=== PATIENT | female | born 1980 | race Asian ===

== ENCOUNTER 2017-03-23 17:51 | Outpatient (CLI) | payer MEDICAID ==
[~2017-03-23] VITALS: Ht 157.5 cm; Wt 81.8 kg
[2017-03-23] MEDS ORDERED: PREN1TAB60 PO (19:38)
== END 2017-03-23 19:47 | disposition home or self-care (01) ==
LOC: LDOP 17:51
PROVIDERS: ATTEND Student in an Organized Health Care Education/Training Program
DX: O09.523 Supervision of elderly multigravida, third trimester (principal); O24.419 Gestational diabetes mellitus in pregnancy, unspecified control; O46.93 Antepartum hemorrhage, unspecified, third trimester; Z3A.33 33 weeks gestation of pregnancy
CPT/HCPCS: 59025; 81001; 82962; 87086; 99201; G0463

== ENCOUNTER 2017-04-25 16:28 | Outpatient (CLI) | payer MEDICAID ==
[~2017-04-25] VITALS: Ht 162.6 cm; Wt 82.0 kg
[~2017-04-25 16:28] MED LIST: PREN1TAB60 PO
== END 2017-04-25 18:50 | disposition home or self-care (01) ==
LOC: LDOP 16:28
PROVIDERS: ATTEND Student in an Organized Health Care Education/Training Program
DX: O09.513 Supervision of elderly primigravida, third trimester (principal); O36.8130 Decreased fetal movements, third trimester, not applicable or unspecified; O24.419 Gestational diabetes mellitus in pregnancy, unspecified control; Z3A.39 39 weeks gestation of pregnancy
CPT/HCPCS: 59025; 99211; G0463

== ENCOUNTER 2017-05-02 07:36 | Inpatient (IN) | payer MEDICAID ==
[~2017-05-02] VITALS: Ht 157.5 cm; Wt 82.7 kg
[2017-05-02 09:00] VITALS: BP 115/73
[2017-05-02] MEDS: D5%-LACTATED RINGERS 1,000 ML IV SCH ×2 (09:07→17:07)
[2017-05-02] MEDS ORDERED: OXYTOCIN 30U/ 0.9% NaCL 500ML 500 ML IV ONE (09:07)
[2017-05-02] MEDS ORDERED: ONDANSETRON 2MG/ML, 2ML IVPush PRN (09:30)
[2017-05-02] MEDS ORDERED: CALCIUM CARBONATE 500 MG TAB.CHEW PO PRN (09:30)
[2017-05-02] MEDS ORDERED: FENTANYL PF 100 MCG/2ML IV PRN (09:30)
[2017-05-02] MEDS ORDERED: LIDOCAINE 1%, 20ML ONE (09:43)
[2017-05-02] MEDS ORDERED: MISOPROSTOL 200 MCG TABLET ONE (09:43)
[2017-05-02] MEDS ORDERED: OXYTOCIN 30U/ 0.9% NaCL 500ML 500 ML ONE (09:44)
[2017-05-02] MEDS ORDERED: NEWBORN KIT ONE (09:44)
[2017-05-02 09:56] LABS: HEMATOCRIT 33.9 % (34.6-47.8); HEMOGLOBIN 10.6 g/dL (11.7-16.4); WHITE BLOOD COUNT 7.7 x10^3/uL (3.4-10)
[2017-05-02] MEDS ORDERED: MISOPROSTOL 25 MCG TABLET ONE (10:09)
[2017-05-02] MEDS ORDERED: MISOPROSTOL 25 MCG TABLET VG PRN (10:30)
[2017-05-02] MEDS ORDERED: OXYTOCIN 30U/ 0.9% NaCL 500ML 500 ML IV PRN (17:28)
[2017-05-03] MEDS: D5%-LACTATED RINGERS 1,000 ML IV SCH ×3 (01:07→17:07)
[2017-05-03] MEDS ORDERED: FENTANYL PF 100 MCG/2ML ONE ×3 (05:02→19:04)
[2017-05-03] MEDS: FENTANYL PF 100 MCG/2ML IVPush PRN ×2 (05:04→08:08)
[2017-05-03] MEDS: LACTATED RINGERS 1,000 ML IV SCH ×5 (05:04→18:58)
[2017-05-03] MEDS: LACTATED RINGERS 1,000 ML IVBOLUS PRN ×2 (18:16→19:00)
[2017-05-03] MEDS ORDERED: FENTANYL/BUPIV./NS/PF 250 ML EPIDCONT SCH (18:58)
[2017-05-03] MEDS ORDERED: EPHEDRINE 50 MG/ML, 1ML IVPush PRN (19:00)
[2017-05-03] MEDS ORDERED: NALOXONE 0.4 MG/ML, 1ML IVPush PRN (19:00)
[2017-05-03] MEDS ORDERED: BUPIVACAINE/PF 0.25% ONE (19:01)
[2017-05-03] MEDS ORDERED: FENTANYL/BUPIV./NS/PF 250 ML EPIDCONT ONE ×2 (19:01→19:04)
[2017-05-03] MEDS ORDERED: BUPIVACAINE 0.25% ONE (19:04)
[2017-05-04] MEDS: D5%-LACTATED RINGERS 1,000 ML IV SCH (01:07)
[2017-05-04] MEDS: LACTATED RINGERS 1,000 ML IV SCH ×3 (01:07→04:30)
[2017-05-04] MEDS ORDERED: HYDROcodone/APAP 5/325 TABLET PO PRN (03:00)
[2017-05-04] MEDS ORDERED: METHYLERGONOVINE 0.2 MG/ML IM PRN (03:00)
[2017-05-04] MEDS ORDERED: AMPICILLIN 2 GM in SODIUM CHLORIDE 0.9% 100 ML IV ONE (03:00)
[2017-05-04] MEDS ORDERED: GENTAMICIN 320 MG in SODIUM CHLORIDE 0.9% 100 ML IV SCH (03:00)
[2017-05-04] MEDS ORDERED: GENTAMICIN PER PHARMACY MC PRN (03:00)
[2017-05-04] MEDS ORDERED: PHARMACOKINETIC MONITORING MC PRN (03:00)
[2017-05-04] MEDS ORDERED: ONDANSETRON 2MG/ML, 2ML IV PRN (03:00)
[2017-05-04] MEDS ORDERED: CALCIUM CARBONATE 500 MG TAB.CHEW PO PRN (03:00)
[2017-05-04] MEDS ORDERED: MISOPROSTOL 200 MCG TABLET PR PRN (03:00)
[2017-05-04] MEDS ORDERED: PHARMACOKINETIC CONSULTATION MC ONE (03:00)
[2017-05-04] MEDS ORDERED: CARBOPROST TROMETHAMINE 250 MCG/ML, 1ML IM PRN (03:00)
[2017-05-04] MEDS ORDERED: OXYcodone/APAP 5/325MG TABLET ONE (03:40)
[2017-05-04] MEDS ORDERED: IBUPROFEN 600 MG TABLET ONE (03:41)
[2017-05-04] MEDS ORDERED: HYDROcodone/APAP 5/325 TABLET ONE (03:44)
[2017-05-04] MEDS: IBUPROFEN 600 MG TABLET PO PRN ×3 (03:45→18:19)
[2017-05-04] MEDS ORDERED: OXYTOCIN 30U/ 0.9% NaCL 500ML 500 ML ONE (04:28)
[2017-05-04] MEDS: OXYTOCIN 30U/ 0.9% NaCL 500ML 500 ML IV SCH ×3 (04:30→22:32)
[2017-05-04 05:45] VITALS: BP 112/72
[2017-05-04 08:20] VITALS: BP 108/70
[2017-05-04] MEDS: DOCUSATE 100 MG CAPSULE PO PRN (09:50)
[2017-05-04] MEDS: PRENATAL VIT/IRON/FA 1 EACH TABLET PO SCH (09:51)
[2017-05-04 10:29] LABS: HEMATOCRIT 31.8 % (34.6-47.8); WHITE BLOOD COUNT 18.4 x10^3/uL (3.4-10)
[2017-05-04] MEDS: HYDROcodone/APAP 5/325 TABLET PO PRN (11:36)
[2017-05-04 12:00] VITALS: BP 105/69
[2017-05-04] MEDS ORDERED: LACTATED RINGERS 1,000 ML IVBOLUS ONE (14:00)
[2017-05-04] MEDS ORDERED: DIPH,PERTUSS(ACELL),TET VAC/PF NC IM-VACC ONE ×2 (15:24→17:00)
[2017-05-04 16:00] VITALS: BP 112/68
[2017-05-04 19:45] VITALS: BP 109/68
[2017-05-05] MEDS: OXYTOCIN 30U/ 0.9% NaCL 500ML 500 ML IV SCH (08:32)
[2017-05-05] MEDS: PRENATAL VIT/IRON/FA 1 EACH TABLET PO SCH (09:00)
[2017-05-05] MEDS: IBUPROFEN 600 MG TABLET PO PRN ×2 (10:42→19:29)
[2017-05-05] MEDS: DOCUSATE 100 MG CAPSULE PO PRN ×2 (10:42→19:29)
[2017-05-05] MEDS: HYDROcodone/APAP 5/325 TABLET PO PRN (10:43)
[2017-05-05 19:15] VITALS: BP 122/83
[2017-05-06] MEDS: IBUPROFEN 600 MG TABLET PO PRN ×2 (02:13→10:00)
[2017-05-06] MEDS: PRENATAL VIT/IRON/FA 1 EACH TABLET PO SCH (10:00)
[2017-05-06] MEDS: DOCUSATE 100 MG CAPSULE PO PRN (10:00)
[2017-05-06 10:20] VITALS: BP 129/82
[2017-05-06] MEDS ORDERED: IBUP-1222 PO (13:23)
== END 2017-05-06 14:20 | disposition home or self-care (01) | DRG 774 ==
LOC: LDIP 08:05 → 2NW 05-04 04:54
PROVIDERS: ADMIT Obstetrics & Gynecology; ATTEND Obstetrics & Gynecology
PROC: 10D07Z8 Extraction of Products of Conception, Other, Via Natural or Artificial Opening (ICD-10-PCS; principal; 2017-05-04)
PROC: 0KQM0ZZ Repair Perineum Muscle, Open Approach (ICD-10-PCS; 2017-05-04)
PROC: 10907ZC Drainage of Amniotic Fluid, Therapeutic from Products of Conception, Via Natural or Artificial Opening (ICD-10-PCS; 2017-05-04)
PROC: 3E033VJ Introduction of Other Hormone into Peripheral Vein, Percutaneous Approach (ICD-10-PCS; 2017-05-04)
PROC: 00HU33Z Insertion of Infusion Device into Spinal Canal, Percutaneous Approach (ICD-10-PCS; 2017-05-04)
PROC: 3E0R3CZ (ICD-10-PCS; 2017-05-04)
DX: O24.429 Gestational diabetes mellitus in childbirth, unspecified control (principal); O98.52 Other viral diseases complicating childbirth; O41.1230 Chorioamnionitis, third trimester, not applicable or unspecified; O09.513 Supervision of elderly primigravida, third trimester; Z37.0 Single live birth; Z3A.39 39 weeks gestation of pregnancy; O77.0 Labor and delivery complicated by meconium in amniotic fluid; R33.9 Retention of urine, unspecified; O14.94 Unspecified pre-eclampsia, complicating childbirth; O69.89X0 Labor and delivery complicated by other cord complications, not applicable or unspecified; O70.1 Second degree perineal laceration during delivery; Z82.3 Family history of stroke; Z82.49 Family history of ischemic heart disease and other diseases of the circulatory system; Z90.89 Acquired absence of other organs
CPT/HCPCS: 36415; 82565; 82962; 85025; 86850; 86900; 90715; J0290; J3010; J3490; J1580; J2590; J7120

== ENCOUNTER 2017-05-09 12:03 | Emergency (ER) | payer MEDICAID ==
[~2017-05-09] VITALS: Ht 157.5 cm; Wt 79.5 kg
[~2017-05-09 12:03] MED LIST changes: +IBUP-1222 PO
[2017-05-09 12:05] VITALS: BP 132/88
[2017-05-09 12:57] LABS: HEMATOCRIT 33.6 % (34.6-47.8); HEMOGLOBIN 10.4 g/dL (11.7-16.4); WHITE BLOOD COUNT 9.8 x10^3/uL (3.4-10)
[2017-05-09 13:02] LABS: PATH.CAST-FLAG NOT PRESENT; SPERM-FLAG NOT PRESENT; SRC-FLAG NOT PRESENT; XTAL-FLAG NOT PRESENT; YLC-FLAG NOT PRESENT
[2017-05-09 13:04] LABS: BLOOD UREA NITROGEN 18 mg/dL (7-18)
[2017-05-09 13:21] LABS: ASPARTATE AMINO TRANSFERASE 19 U/L (15-37)
== END 2017-05-09 14:17 | disposition home or self-care (01) ==
LOC: ED 13:02
DX: O12.05 Gestational edema, complicating the puerperium (principal)
CPT/HCPCS: 36415; 71010; 80053; 81001; 83735; 83880; 84443; 85025; 87086; 93005; 99285

== ENCOUNTER 2017-05-09 22:32 | Emergency (ER) | payer MEDICAID ==
[~2017-05-09] VITALS: Ht 152.4 cm; Wt 79.3 kg
[2017-05-09 23:22] LABS: PATH.CAST-FLAG NOT PRESENT; SPERM-FLAG NOT PRESENT; SRC-FLAG NOT PRESENT; XTAL-FLAG NOT PRESENT; YLC-FLAG NOT PRESENT
[2017-05-09 23:57] VITALS: BP 122/64
== END 2017-05-09 23:59 | disposition home or self-care (01) ==
LOC: ED 23:16
DX: R39.15 Urgency of urination (principal); R10.2 Pelvic and perineal pain
CPT/HCPCS: 51702; 81003

== ENCOUNTER 2017-06-27 21:50 | Emergency (ER) | payer MEDICAID ==
[~2017-06-27] VITALS: Ht 157.5 cm; Wt 79.6 kg
[2017-06-27 23:19] LABS: HEMATOCRIT 38.7 % (34.6-47.8); HEMOGLOBIN 12.3 g/dL (11.7-16.4); WHITE BLOOD COUNT 7.1 x10^3/uL (3.4-10)
[2017-06-27 23:31] LABS: ASPARTATE AMINO TRANSFERASE 12 U/L (15-37); BLOOD UREA NITROGEN 20 mg/dL (7-18)
[2017-06-28 00:44] LABS: PATH.CAST-FLAG NOT PRESENT; SPERM-FLAG NOT PRESENT; SRC-FLAG NOT PRESENT; XTAL-FLAG NOT PRESENT; YLC-FLAG NOT PRESENT
[2017-06-28] MEDS ORDERED: OMNIPAQUE 350 MG/ML, 100ML BOTTLE ONE (02:05)
[2017-06-28] MEDS ORDERED: CEFTRIAXONE PMX 1GM/50ML 50 ML ONE (02:09)
[2017-06-28] MEDS ORDERED: AZITHROMYCIN 250 MG TABLET ONE (02:10)
[2017-06-28] MEDS ORDERED: CEFTRIAXONE PMX 1GM/50ML 50 ML IVPB ONE (02:30)
[2017-06-28] MEDS ORDERED: AZITHROMYCIN 250 MG TABLET PO ONE (02:30)
[2017-06-28 03:08] VITALS: BP 127/74
== END 2017-06-28 03:09 | disposition home or self-care (01) ==
LOC: ED 22:30
DX: R10.2 Pelvic and perineal pain (principal)
CPT/HCPCS: 36415; 74177; 76830; 80053; 81001; 84703; 85025; 87210; 87808; 96365; 99285; J0696; Q9967